=== PATIENT | male | born 1990 ===

== ENCOUNTER 2023-03-29 08:07 | Emergency (ER) | payer OTHER ==
[~2023-03-29] VITALS: Ht 182.9 cm; Wt 79.4 kg
[~2023-03-29 08:07] MED LIST: CEPH500 PO; CRUTCH3 USE; HYDACE5 PO; NAPR375 PO; SULTRIDS PO
[2023-03-29] MEDS ORDERED: AMOCLA875 PO (11:29)
[2023-03-29 11:52] VITALS: BP 129/79
== END 2023-03-29 13:00 | disposition home or self-care (01) ==
LOC: ER 08:07
DX: S50.871A Other superficial bite of right forearm, initial encounter (principal); S70.272A Other superficial bite of hip, left hip, initial encounter; S61.452A Open bite of left hand, initial encounter; W54.0XXA Bitten by dog, initial encounter; Z88.5 Allergy status to narcotic agent
CPT/HCPCS: 12002; 73090; 73130; 96365-59; 96372-59; 99283-25; A9270; J0295; J1885